=== PATIENT | female | born 1995 | race Caucasian/White ===

== ENCOUNTER 2023-03-31 11:35 | Emergency (ER) | payer MEDICAID ==
[~2023-03-31] VITALS: Ht 162.6 cm; Wt 50.0 kg
[2023-03-31 12:13] VITALS: BP 162/92
--- NOTE | 2023-03-31 12:31 | NUR ---
Dr. Zepeda and MILDRED Moyer at bedside doing the I&D Addendum: 03/31/23 at 1231 by SARAH Patient had agreed to stay and get the procedure done instead of going AMA
[2023-03-31] MEDS ORDERED: SULF1TAB49 PO (12:42)
== END 2023-03-31 13:03 | disposition left against medical advice (07) ==
LOC: ER 11:36
DX: L02.11 Cutaneous abscess of neck (principal)
CPT/HCPCS: 10060; 99284; A6449

== ENCOUNTER 2023-05-15 10:03 | Emergency (ER) | payer MEDICAID ==
[~2023-05-15] VITALS: Ht 165.1 cm; Wt 49.0 kg
[2023-05-15 13:48] VITALS: BP 97/68; PULSE 112; RESP 16; TEMP 99.5; O2SAT 100
[2023-05-15] MEDS ORDERED: LIDOcaine 1% 30ml preserv. free vial SQ STA (14:33)
[2023-05-15] MEDS ORDERED: bacitracin 15gm ointment TP ONE (14:55)
[2023-05-15] MEDS ORDERED: ceFAZolin 1gm IM kit IM ONE (14:55)
[2023-05-15] MEDS ORDERED: CEPH500C2 PO (14:57)
== END 2023-05-15 15:31 | disposition home or self-care (01) ==
LOC: ER 10:03
DX: L02.11 Cutaneous abscess of neck (principal); F17.200 Nicotine dependence, unspecified, uncomplicated; F12.90 Cannabis use, unspecified, uncomplicated; Z79.2 Long term (current) use of antibiotics
CPT/HCPCS: 10060; 96372; 99283; J0690; A6449